=== PATIENT | female | born 1985 | race Two or more races ===

== ENCOUNTER 2018-04-01 11:06 | Outpatient (CLI) | payer OTHER | END 2018-04-01 11:19 | disposition home or self-care (01) | LOC: LAB 11:06 | DX: J11.1 Influenza due to unidentified influenza virus with other respiratory manifestations (principal); J18.0 Bronchopneumonia, unspecified organism; J06.9 Acute upper respiratory infection, unspecified ==

== ENCOUNTER 2018-07-07 10:07 | Outpatient (CLI) | payer OTHER | END 2018-07-07 10:45 | disposition home or self-care (01) | LOC: LAB 10:07 | DX: J11.1 Influenza due to unidentified influenza virus with other respiratory manifestations (principal); K06.9 Disorder of gingiva and edentulous alveolar ridge, unspecified ==

== ENCOUNTER 2020-05-31 06:00 | Day surgery (SDC) | payer OTHER ==
[~2020-05-31 06:00] MED LIST: SPRINTEC 28 DA1 EACH PO
== END 2020-05-31 13:45 | disposition home or self-care (01) ==
LOC: CIR.AMB 06:00
PROVIDERS: ATTEND Specialist
DX: D06.7 Carcinoma in situ of other parts of cervix (principal); Z20.822 Contact with and (suspected) exposure to COVID-19

== ENCOUNTER 2021-06-18 11:44 | Emergency (ER) | payer OTHER ==
[~2021-06-18] VITALS: Ht 152.4 cm; Wt 61.2 kg
[2021-06-18] MEDS ORDERED: PROBIOTIC1 EAC4 PO (17:13)
[2021-06-18] MEDS ORDERED: PEPCID AC20 MG PO (17:13)
== END 2021-06-18 17:29 | disposition home or self-care (01) ==
LOC: ER 11:44
DX: R10.84 Generalized abdominal pain (principal); R19.7 Diarrhea, unspecified

== ENCOUNTER 2023-05-11 12:43 | Outpatient (CLI) | payer OTHER ==
[~2023-05-11 12:43] MED LIST changes: +PEPCID AC20 MG PO; +PROBIOTIC1 EAC4 PO
== END 2023-05-11 12:58 | disposition home or self-care (01) ==
LOC: MAMO-SONO 12:43
PROVIDERS: ATTEND Specialist
DX: N63 Unspecified lump in breast (principal); Z12.31 Encounter for screening mammogram for malignant neoplasm of breast; R10.2 Pelvic and perineal pain